=== PATIENT | male | born 1935 | race Caucasian/White ===

== ENCOUNTER 2018-12-06 09:09 | Inpatient (IN) ==
[2018-12-06] MEDS ORDERED: IPRATROPIUM/ALBUTEROL 3 ML AMPUL.NEB NEB ONE (09:40)
--- NOTE | 2018-12-06 09:46 | XRay Report ---
HISTORY: Short of breath FINDINGS: Patient has moderate emphysema involving the upper lobes. There is a chronic or recurrent moderate size consolidating infiltrate in the left lower lobe. This is worse than it was on 06/29/18 but similar to that seen on the chest CT done on 08/16/18. Some of the consolidation of lung parenchyma is probably scar tissue. There are are surgical sutures in the left mid and upper thorax. The prior CT scan also demonstrates significant consolidation posteriorly in the left upper lobe. The left upper lobe infiltrate has improved. The heart size is normal. There are sternal wires present. There is no congestive heart failure and no pleural effusion is seen. There is pleural scar tissue laterally at the left lung base. IMPRESSION: Infiltrate throughout the lower two thirds the left lung which may be a combination of recurrent pneumonia and scar tissue Postoperative changes following sternotomy and left-sided thoracotomy Emphysema Interpreted and Authenticated by: Herminio Andujar 12/06/18
--- NOTE | 2018-12-06 09:54 | Emergency Department Note ---
SOB HPI - General Chief Complaint: Shortness of Breath/Dyspnea Stated Complaint: SOB x2 weeks Time Seen by Provider: 12/06/18 09:35 Source: patient Mode of arrival: ambulatory Limitations: no limitations - History of Present Illness 83-year-old gentleman with significant history of coronary artery disease, former smoker, history of cough really for the last 3-4 months. Notably he had an abnormal chest x-ray in June of last year, left lower lobe infiltrate which really has not cleared in the interim. Positive CT in August for left upper lobe as well as left lower lobe pneumonia. Status post CABG. Quit smoking about that time. Reports that for the last 2 weeks has not felt well, coughing, sputum production worsening and he is bringing up yellow phlegm. Denies chest pain, he felt a little bit more short of breath today, also generalized weakness which has been worsening. Denies abdominal pain denies nausea vomiting diarrhea. 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 Constitutional: Reports: chills Eyes: Denies: eye pain ENT ED: Denies: ear pain Cardiovascular: Reports: dyspnea on exertion. Denies: chest pain, syncope Respiratory: Reports: shortness of breath, cough, wheezes, phlegm Gastrointestinal: Denies: abdominal pain, nausea, vomiting, diarrhea, constipation Genitourinary: Denies: dysuria, frequency Musculoskeletal: Denies: back pain Integumentary: Denies: rash Neurological: Reports: weakness. Denies: headache Endocrine: Reports: fatigue Hematological/Lymphatic: Denies: easy bleeding Allergic/Immunologic: Denies: facial swelling Past Medical History - Past Medical History Source: old records reviewed Medical history: Reports: CAD (coronary artery disease), COPD, DM, myocardial infarction, pneumonia, other (AAA, lung nodule) Surgical history ED: Reports: coronary bypass (CABG) (Two-vessel), knee replacement, other (Lung biopsy, aneurysm repair) Family history: Reports: non-contributory - Social History smoking status: Former smoker Alcohol use: Reports: Rarely Drug use: Reports: none Physical Exam Limitations: no limitations General appearance: alert, in no apparent distress Head: atraumatic, normocephalic, normal inspection Eye: Present: normal appearance, PERRL, EOMI. Absent: conjunctival injection ENT: normal exam, normal oropharynx, mucous membranes moist, TM's normal maddison aterally Neck: Present: normal inspection, full ROM, trachea midline Chest: Present: normal inspection, symmetric chest wall rise Respiratory: Present: wheezes, prolonged expiratory phase, other (diminished over the left lower lung bases.). Absent: respiratory distress, rales/crackles Cardiovascular: Present: regular rate, normal heart sounds Abdominal: Present: soft, normal bowel sounds. Absent: distention, tenderness, guarding Extremities: Present: normal inspection, full ROM. Absent: tenderness, pedal edema Back: Present: normal inspection. Absent: CVA tenderness (R), CVA tenderness (L) Neurological: Present: alert, oriented X3, normal gait, other (generally weak but still ambulatory.) Psychiatric: Present: normal affect Skin: Present: warm, normal color. Absent: rash, cyanosis Course Vital Signs Temperature 97.8 F 12/06/18 09:10 Pulse Rate 90 12/06/18 09:10 Respiratory Rate 18 12/06/18 09:10 Blood Pressure 123/72 12/06/18 09:10 Pulse Oximetry (%) 93 12/06/18 09:10 Temperature 100.3 F H 12/06/18 11:20 Pulse Rate 88 12/06/18 11:16 Respiratory Rate 15 12/06/18 11:16 Blood Pressure 112/77 12/06/18 11:16 Pulse Oximetry (%) 93 12/06/18 11:16 Shortness of Breath/Dyspnea - [facility] Narrative Medical decision making narrative: It turns out he is hypoxic on room air. O2 sats in the high 80s. Please see blood gas this was reviewed. Impression pneumonia left lower lobe. Started on antibiotics. Blood cultures drawn. Discussed with Dr. Butcher - Lab Data Result diagrams: 12/06/18 10:01 12/06/18 10:01 Lab Results 12/06/18 12/06/18 12/06/18 Range/Units 10:01 10:01 10:01 WBC 22.1 H (4.5-11.0) K/mcL RBC 4.10 L (4.50-5.90) M/mcL Hgb 12.8 L (13.5-16.5) g/dL Hct 38.7 L (41.0-55.0) % MCV 94.5 (80.0-100.0) fL MCH 31.3 (26.0-34.0) pg MCHC 33.1 (31.0-36.0) g/dL RDW 14.0 (11.5-14.5) % Plt Count 263 (140-440) K/mcL MPV 8.9 (7.4-10.4) fL Gran % 92.3 H (38.0-78.0) % Lymph % (Auto) 3.9 L (15.5-49.0) % [place] % (Auto) 3.8 (1.0-12.0) % Eos % (Auto) 0 (0.0-7.0) % Baso % (Auto) 0 (0.0-2.0) % Gran # 20.4 H (1.8-8.0) K/mcL Lymph # (Auto) 0.9 L (1.5-4.8) K/mcL [place] # (Auto) 0.8 (0.1-0.9) K/mcL Eos # (Auto) 0 (0.0-0.7) K/mcL Baso # (Auto) 0 (0.0-0.3) K/mcL VBG Lactic Acid 1.2 (0.5-2.0) mmol/L Sodium 134 (133-145) mmol/L Potassium 5.0 (3.3-5.1) mmol/L Chloride 98 (96-108) mmol/L Carbon Dioxide 25 (22-30) mmol/L Anion Gap 11.0 (8-16) BUN 13 (8-23) mg/dl Creatinine 0.9 (0.7-1.2) mg/dl GFR Calculation 80 Glucose 127 H (70-105) mg/dL Calcium 8.7 (8.6-10.4) mg/dl Total Bilirubin 0.6 (0.0-1.0) mg/dL AST 11 (0-37) U/l ALT 12 (0-40) U/l Alkaline Phosphatase 78 (39-117) U/L Troponin T (0-0.03) ng/ml C-Reactive Protein 24.2 H (0.0-0.8) mg/dl NT-Pro-B Natriuret Pep 1660.0 H (0-450) pg/ml Total Protein 6.4 (5.9-8.4) gm/dL Albumin 3.4 (3.2-5.2) gm/dL Globulin 3.0 (2.2-3.7) gm/dL Albumin/Globulin Ratio 1.1 (1.0-2.3) 12/06/18 Range/Units 10:01 WBC (4.5-11.0) K/mcL RBC (4.50-5.90) M/mcL Hgb (13.5-16.5) g/dL Hct (41.0-55.0) % MCV (80.0-100.0) fL MCH (26.0-34.0) pg MCHC (31.0-36.0) g/dL RDW (11.5-14.5) % Plt Count (140-440) K/mcL MPV (7.4-10.4) fL Gran % (38.0-78.0) % Lymph % (Auto) (15.5-49.0) % [place] % (Auto) (1.0-12.0) % Eos % (Auto) (0.0-7.0) % Baso % (Auto) (0.0-2.0) % Gran # (1.8-8.0) K/mcL Lymph # (Auto) (1.5-4.8) K/mcL [place] # (Auto) (0.1-0.9) K/mcL Eos # (Auto) (0.0-0.7) K/mcL Baso # (Auto) (0.0-0.3) K/mcL VBG Lactic Acid (0.5-2.0) mmol/L Sodium (133-145) mmol/L Potassium (3.3-5.1) mmol/L Chloride (96-108) mmol/L Carbon Dioxide (22-30) mmol/L Anion Gap (8-16) BUN (8-23) mg/dl Creatinine (0.7-1.2) mg/dl GFR Calculation Glucose (70-105) mg/dL Calcium (8.6-10.4) mg/dl Total Bilirubin (0.0-1.0) mg/dL AST (0-37) U/l ALT (0-40) U/l Alkaline Phosphatase (39-117) U/L Troponin T < 0.01 (0-0.03) ng/ml C-Reactive Protein (0.0-0.8) mg/dl NT-Pro-B Natriuret Pep (0-450) pg/ml Total Protein (5.9-8.4) gm/dL Albumin (3.2-5.2) gm/dL Globulin (2.2-3.7) gm/dL Albumin/Globulin Ratio (1.0-2.3) Disposition Pt seen by L[employer] RO[employer] MANAGER/PA only: No Clinical Impression: Community acquired pneumonia COPD (chronic obstructive pulmonary disease) Qualifiers: COPD type: emphysema Emphysema type: unspecified Qualified Code(s): J43.9 - Emphysema, unspecified Disposition: Xfer As Inpt ([facility]) Condition: Fair Referrals: Virginia Alvarado ARNP [Primary Care Provider] -
[2018-12-06] MEDS ORDERED: LACTATED RINGERS 1,000 ML IV SCH (10:00)
[2018-12-06 10:33] LABS: Basophils # (Auto) 0 K/mcL (0.0-0.3); Basophils % (Auto) 0 % (0.0-2.0); Eosinophils # (Auto) 0 K/mcL (0.0-0.7); Eosinophils % (Auto) 0 % (0.0-7.0); Granulocytes % (Auto) 92.3 % (38.0-78.0); Lymphocytes # (Auto) 0.9 K/mcL (1.5-4.8); Lymphocytes % (Auto) 3.9 % (15.5-49.0); Mean Cell Volume 94.5 fL (80.0-100.0); Mean Corpuscular HGB Conc 33.1 g/dL (31.0-36.0); Monocytes # (Auto) 0.8 K/mcL (0.1-0.9); Monocytes % (Auto) 3.8 % (1.0-12.0); Platelet Count 263 K/mcL (140-440)
[2018-12-06] MEDS ORDERED: cefTRIAXone 1 GM VIAL IV ONE ×2 (11:02→12:45)
[2018-12-06] MEDS ORDERED: LEVOFLOXACIN 750 MG/150 ML BAG IV ONE (11:03)
[2018-12-06 11:05] LABS: ALT/SGPT 12 U/l (0-40); Albumin 3.4 gm/dL (3.2-5.2); Albumin/Globulin Ratio 1.1 (1.0-2.3); Alkaline Phosphatase 78 U/L (39-117); Blood Urea Nitrogen 13 mg/dl (8-23); C-Reactive Protein 24.2 mg/dl (0.0-0.8)
[2018-12-06] MEDS ORDERED: ACETAMINOPHEN 325 MG TABLET PO ONE (11:17)
--- NOTE | 2018-12-06 11:27 | Internal Med History&Physical ---
Medical - H&P: [facility] Patient information: Note initiated : 12/06/18 at 11:25 am Service Date, if different from initiated Date: [] Patient: Anderson Zarate a 83 y/o M admitted on for SOB x2 weeks. Chief Complaint: [] Chief complaint: shortness of breath History of present illness: Mr. Zarate is a 83 year old M fairly independent who presents with worsening shortness of breath along with yellow productive sputum and fever that has evolved over the last week. Patient noted a significant functional decline to the point is extremely fatigued and unable to perform activities of daily living . He is also experiencing orthopnea. He denies shaking chills, rash, joint pain, headache, photophobia. He denies sick contacts. He is up-to-date on vaccines status. He sees primary care physician Virginia Cabrera. With worsening symptoms patient patient presents to the ER today. Initial workup was consistent with severe sepsis with white count 22,000 along with left lower lobe pneumonia. Patient was started on antibiotic coverage/hospitalist service was consulted At the time of evaluation patient is alert and oriented. He is feeling short of breath however it was able to talk in full sentences. He denies changes in medication. Review of systems 10 point review systems was performed and is negative except as discussed above Medical - H&P: PMH Medical history: Constipation Pertinent family history: Unremarkable Social history: Lives in [place] Does not smoke Medical - H&P: Meds Home Medications Medication Instructions Recorded Confirmed Type Aspirin [Lite Coat Aspirin] 325 mg PO DAILY 12/06/18 12/06/18 History Allergies Allergy/AdvReac Type Severity Reaction Status Date / Time No Known Drug Allergies Allergy Verified 08/16/18 09:13 Medical - H&P: Exam - Constitutional Vitals: Temp Pulse Resp BP Pulse Ox 100.3 F H 88 15 112/77 93 12/06/18 11:17 12/06/18 11:16 12/06/18 11:16 12/06/18 11:16 12/06/18 11:16 General appearance: no acute distress Exam: Alert oriented Minimally labored breathing eye movements symmetrical Oral cavity dry No ear or nose discharge Head normocephalic S1 and S2 regular rhythm tachycardia, PSM grade 1 Diminished breath sounds bases with markedly diminished sounds left lateral posterior chest Abdomen soft nontender Lower extremity no cyanosis clubbing or joint swelling Skin no suspicious lesion Psych alert cooperative Neuro nonfocal Medical - H&P: Reslt - Labs CBC & Chem 7: 12/06/18 10:01 12/06/18 10:01 Labs: Short CBC 12/06/18 Range/Units 10:01 WBC 22.1 H (4.5-11.0) K/mcL Hgb 12.8 L (13.5-16.5) g/dL Hct 38.7 L (41.0-55.0) % Plt Count 263 (140-440) K/mcL BMP 12/06/18 10:01 Sodium 134 Potassium 5.0 Chloride 98 Carbon Dioxide 25 BUN 13 Creatinine 0.9 Glucose 127 H Calcium 8.7 Cardiac Enzymes 12/06/18 Range/Units 10:01 Troponin T < 0.01 (0-0.03) ng/ml Liver Function 12/06/18 Range/Units 10:01 Total Bilirubin 0.6 (0.0-1.0) mg/dL AST 11 (0-37) U/l ALT 12 (0-40) U/l Alkaline Phosphatase 78 (39-117) U/L Albumin 3.4 (3.2-5.2) gm/dL Medical - H&P: A/P (1) Severe sepsis Current visit: Yes Status: Acute * Severe sepsis secondary pneumonia with white count 22,000-continue management per guidelines. Pancultures. Broad antibiotic coverage. Crystalloids/venous lactate trending * Left lower lobe pneumonia-continue antibiotic coverage for community acquired pathogen. Await sputum and blood cultures/mycoplasma Streptococcus serology. * Hypoxic respiratory failure secondary to above. Continue supplemental oxygen/pulmonary toilet/bronchodilators. * Prophylaxis heparin Plan * Inpatient admission * Broad antibiotic coverage * Bronchodilators/pulmonary toilet/supplemental oxygen * Nutrition support/PT OT * Case management to coordinate discharge planning
[2018-12-06] MEDS ORDERED: ACETAMINOPHEN 1,000 MG/100 ML BOTTLE IV PRN (12:29)
[2018-12-06] MEDS ORDERED: MAGNESIUM SULFATE 2 GM/50 ML BAG IV PRN (12:29)
[2018-12-06] MEDS ORDERED: POTASSIUM CHLORIDE 20 MEQ PACKET PO PRN (12:29)
[2018-12-06] MEDS ORDERED: ONDANSETRON 4 MG/2 ML VIAL IV PRN (12:29)
[2018-12-06] MEDS ORDERED: NOREPINEPHRINE BITARTRATE 16 MG in 0.9 % SODIUM CHLORIDE 234 ML IV PRN (12:29)
[2018-12-06] MEDS ORDERED: ACETAMINOPHEN 325 MG TABLET PO PRN (12:29)
[2018-12-06] MEDS ORDERED: LEVOFLOXACIN 750 MG/150 ML BAG IV SCH (12:29)
[2018-12-06] MEDS ORDERED: traZODone HCL 50 MG TABLET PO PRN (12:29)
[2018-12-06] MEDS: 0.9 % SODIUM CHLORIDE 1,000 ML IV SCH (12:52)
[2018-12-06] MEDS: 0.9 % SODIUM CHLORIDE 10 ML SYRINGE IV SCH ×2 (13:34→21:00)
[2018-12-06] MEDS: IPRATROPIUM/ALBUTEROL 3 ML AMPUL.NEB NEB SCH ×3 (14:41→22:44)
[2018-12-06] MEDS ORDERED: MAGNESIUM HYDROXIDE 30 ML ORAL.SUSP PO PRN (15:38)
[2018-12-06] MEDS: guaiFENesin/DEXTROMETHORPHAN ORAL SOL PO PRN (16:05)
[2018-12-06] MEDS: BUDESONIDE 0.5 MG/2 ML AMPUL.NEB NEB SCH (19:20)
[2018-12-06] MEDS: HEPARIN 5,000 UNIT/ML VIAL SQ SCH (20:58)
[2018-12-06] MEDS: DOCUSATE SODIUM 100 MG CAPSULE PO SCH (20:58)
[2018-12-06] MEDS ORDERED: SENNOSIDES/DOCUSATE SODIUM 1 TAB TABLET PO SCH (21:00)
[2018-12-07] MEDS: guaiFENesin/DEXTROMETHORPHAN ORAL SOL PO PRN (00:48)
[2018-12-07] MEDS: IPRATROPIUM/ALBUTEROL 3 ML AMPUL.NEB NEB SCH ×5 (03:03→22:29)
[2018-12-07] MEDS: 0.9 % SODIUM CHLORIDE 10 ML SYRINGE IV SCH ×3 (05:23→21:47)
[2018-12-07 05:40] LABS: Mean Cell Volume 94.9 fL (80.0-100.0); Mean Corpuscular HGB Conc 32.7 g/dL (31.0-36.0); Platelet Count 202 K/mcL (140-440); RBC 3.63 M/mcL (4.50-5.90); Red Cell Distribution Width 14.1 % (11.5-14.5)
[2018-12-07 06:07] LABS: ALT/SGPT 13 U/l (0-40); Albumin 2.8 gm/dL (3.2-5.2); Alkaline Phosphatase 86 U/L (39-117); Bilirubin,Direct < 0.2 mg/dL (0.0-0.3); Blood Urea Nitrogen 10 mg/dl (8-23); Gamma Glutamyl Transpeptidase 31 U/L (8-61); Uric Acid 4.5 mg/dL (2.5-8.0)
[2018-12-07 06:35] LABS: Lymphocytes % 12 % (15-49); Monocytes % (Manual) 3 % (1-12); Platelet Estimate NORMAL (NORMAL); RBC Morphology NORMAL (NORMAL); Segmented Neutrophils % 85 % (38-78)
[2018-12-07] MEDS: BUDESONIDE 0.5 MG/2 ML AMPUL.NEB NEB SCH ×2 (07:57→19:17)
[2018-12-07] MEDS: HEPARIN 5,000 UNIT/ML VIAL SQ SCH ×2 (08:17→21:47)
[2018-12-07] MEDS: DOCUSATE SODIUM 100 MG CAPSULE PO SCH ×2 (08:18→21:47)
[2018-12-07] MEDS: 0.9 % SODIUM CHLORIDE 1,000 ML IV SCH ×2 (08:29→16:13)
[2018-12-07] MEDS ORDERED: ASPIRIN 325 MG ENTERIC COATED TABLET PO SCH (09:00)
[2018-12-07] MEDS ORDERED: cefTRIAXone 2 GM in DEXTROSE 5% IN WATER 50 ML IV SCH (09:00)
--- NOTE | 2018-12-07 09:55 | Internal Med Progress Note ---
Medical - PN: Subj Patient information: Note initiated : 12/07/18 at 9:51 am Service Date, if different from initiated Date: [] Patient: Anderson Zarate a 83 y/o M admitted on 12/06/18 for SOB x2 weeks. Chief Complaint: [] Interval history: Mr. Zarate is a 83 year old M fairly independent gentleman who presents with worsening shortness of breath along with yellow productive sputum and fever that has evolved over the last week. Patient noted a significant functional decline to the point is extremely fatigued and unable to perform ADL. He is also experiencing orthopnea. He denies shaking chills, rash, joint pain, headache, photophobia. He denies sick contacts. He is up-to-date on vaccines status. He sees primary care physician Virginia Cabrera. With worsening symptoms patient patient presents to the ER today. Initial workup was consistent with severe sepsis with white count 22,000 along with left lower lobe pneumonia. Patient was started on antibiotic coverage/hospitalist service was consulted At the time of evaluation patient is alert and oriented. He is feeling short of breath however it was able to talk in full sentences. He denies changes in medication. 12/07-patient has shown dramatic improvement overnight on antibiotic coverage. White count is down to 10,000. Dyspnea has improved. Denies fevers shaking chills. Improving productive sputum. Initial Gram stain mixed abhijit. Juanito erating diet. Family at bedside. No concerns expressed by patient or nursing staff. Continue treatment - Constitutional Vitals: Vital Signs Temp Pulse Resp BP Pulse Ox 97.4 F 83 16 126/79 92 12/07/18 06:41 12/07/18 07:59 12/07/18 07:59 12/07/18 06:41 12/07/18 07:59 Period Temp Pulse Resp BP Sys/Platt Pulse Ox Last 24 Hr 97.4 F-101.8 F 74-94 15-32 96-149/66-81 86-100 Intake and Output 12/06/18 12/07/18 12/07/18 21:59 05:59 13:59 Intake Total 8766 713 1280 Output Total 650 850 Balance 647 -700 1221 Weight 206 lb Intake & Output: Intake & Output 12/06/18 12/07/18 12/07/18 21:59 05:59 13:59 Intake Total 6169 096 9401 Output Total 650 850 Balance 647 -700 1221 Weight 206 lb Intake: IV 787 981 Sodium Chloride 0.9% 1,000 ml @ 981 50 mls/hr IV .Q20H [facility] Rx#: [id number] Oral 510 150 240 Output: Void Amount 650 850 Other: Meal Lunch Percent of Meal Consumed 100% Urine Appearance Clear Clear Urine Color Light Andree Dark Yellow Urine Odor Normal Normal Stool Size Small Stool Color Brown Stool Consistency Normal for Patient # Voids 1 # Bowel Movements 1 General appearance: no acute distress Exam: Alert oriented Nonlabored breathing No anxiety Nondistended abdomen Medical - PN: Obj Da - Labs CBC & Chem 7: 12/07/18 03:32 12/07/18 03:32 Labs: Abnormal Lab Results 12/07/18 12/07/18 12/06/18 03:32 03:32 10:01 WBC RBC 3.63 L Hgb 11.3 L Hct 34.5 L Gran % Lymph % (Auto) Gran # Lymph # (Auto) Seg Neutrophils % 85 H Lymphocytes % 12 L Glucose 145 H 127 H Calcium 8.0 L C-Reactive Protein 24.2 H NT-Pro-B Natriuret Pep 1660.0 H Total Protein 5.5 L Albumin 2.8 L 12/06/18 10:01 WBC 22.1 H RBC 4.10 L Hgb 12.8 L Hct 38.7 L Gran % 92.3 H Lymph % (Auto) 3.9 L Gran # 20.4 H Lymph # (Auto) 0.9 L Seg Neutrophils % Lymphocytes % Glucose Calcium C-Reactive Protein NT-Pro-B Natriuret Pep Total Protein Albumin Meds: Medications Acetaminophen (Tylenol) 650 mg PO Q4-6HP PRN PRN Reason: PAIN/FEVER > 101 Last Admin: 12/06/18 20:58 Dose: 650 mg Documented by: Albuterol/Ipratropium (Duoneb) 3 ml NEB Q4HRT [facility] Last Admin: 12/07/18 07:57 Dose: 3 ml Documented by: Aspirin (Ecotrin) 325 mg PO DAILY [facility] Last Admin: 12/07/18 08:17 Dose: 325 mg Documented by: Budesonide (Pulmicort) 0.5 mg NEB Q12 [facility] Last Admin: 12/07/18 07:57 Dose: 0.5 mg Documented by: Docusate Sodium (Colace) 100 mg PO BID [facility] Last Admin: 12/07/18 08:18 Dose: 100 mg Documented by: Guaifenesin (Robitussin Dm) 10 ml PO Q4HP PRN PRN Reason: Cough Last Admin: 12/07/18 00:48 Dose: 10 ml Documented by: Heparin Sodium (Porcine) (Heparin) 5,000 unit SQ Q12 [facility] Last Admin: 12/07/18 08:17 Dose: 5,000 unit Documented by: Ceftriaxone Sodium 2 gm/ (Dextrose) 50 mls @ 100 mls/hr IV Q24H [facility]; Protocol Last Admin: 12/07/18 08:15 Dose: 100 mls/hr Documented by: Magnesium Sulfate (Magnesium Sulfate) 2 gm in 50 mls @ 50 mls/hr IV UD PRN PRN Reason: MG = or < 1.7 Norepinephrine Bitartrate 16 (mg/ Sodium Chloride) 250 mls @ 9.38 mls/hr IV Q24HP PRN; Protocol PRN Reason: Hypotension Sodium Chloride (Sodium Chloride 0.9%) 1,000 mls @ 50 mls/hr IV .Q20H [facility] Stop: 12/09/18 00:28 Last Admin: 12/07/18 08:29 Dose: 50 mls/hr Documented by: Acetaminophen (Ofirmev) 1,000 mg in 100 mls @ 200 mls/hr IV Q6HP PRN PRN Reason: PAIN/FEVER > 101 Levofloxacin (Levaquin) 750 mg in 150 mls @ 100 mls/hr IV Q24H [facility]; Protocol Last Admin: 12/07/18 08:28 Dose: 100 mls/hr Documented by: Magnesium Hydroxide (Milk Of Magnesia) 30 ml PO DAILYP PRN PRN Reason: Constipation Ondansetron HCl (Zofran) 4 mg IV Q4-6HP PRN PRN Reason: Nausea And Vomiting Potassium Chloride (Klor-Con) 40 meq PO DAILYP PRN PRN Reason: K+ < 3.5 Senna/Docusate Sodium (Senna Plus Tablet) 1 tab PO HS [facility] Last Admin: 12/06/18 20:58 Dose: 1 tab Documented by: Sodium Chloride (Saline Flush) 10 ml IV Q8 [facility] Last Admin: 12/07/18 05:23 Dose: Not Given Documented by: Trazodone HCl (Desyrel) 50 mg PO HSP PRN PRN Reason: Insomnia Last Admin: 12/06/18 20:58 Dose: 50 mg Documented by: Medical - PN: A/P - Time Spent With Patient Total time spent is greater than 50% in coordination of care (as documented) at patient's floor/unit and/or counseling patient: 25 - 35 minutes (1) Severe sepsis Status: Acute Assessment and plan: * Left lower lobe pneumonia-remarkable clinical improvement noted since admission. Downtrending white count from 20,000-10,000. Floor on sputum. Negative blood cultures/mycoplasma Streptococcus serology. * Severe sepsis secondary pneumonia with white count improved to 10,000. Continue Management per guidelines. * Hypoxic respiratory failure secondary to above. Clinically improving. On 2 L oxygen , continue pulmonary toilet/bronchodilators. * Prophylaxis heparin Plan * Continue antibiotic coverage * Pulmonary toilet/bronchodilators and supplemental oxygen * PT OT/dietary intervention * Possible discharge in 24-48 hours Current Visit: Yes Medical - PN: Qual - VTE Deep Vein Thrombosis/Pulmonary Embolism Present on Admission: No
[2018-12-07] MEDS ORDERED: LEVOFLOXACIN 750 MG/150 ML BAG IV SCH (10:00)
[2018-12-07] MEDS ORDERED: ACETAMINOPHEN 325 MG TABLET PO PRN (15:10)
[2018-12-07] MEDS ORDERED: MAGNESIUM SULFATE 2 GM/50 ML BAG IV PRN (15:10)
[2018-12-07] MEDS ORDERED: guaiFENesin/DEXTROMETHORPHAN ORAL SOL PO PRN (15:10)
[2018-12-07] MEDS ORDERED: NOREPINEPHRINE BITARTRATE 16 MG in 0.9 % SODIUM CHLORIDE 234 ML IV PRN (15:10)
[2018-12-07] MEDS ORDERED: traZODone HCL 50 MG TABLET PO PRN (15:10)
[2018-12-07] MEDS ORDERED: MAGNESIUM HYDROXIDE 30 ML ORAL.SUSP PO PRN (15:10)
[2018-12-07] MEDS ORDERED: ACETAMINOPHEN 1,000 MG/100 ML BOTTLE IV PRN (15:10)
[2018-12-07] MEDS ORDERED: POTASSIUM CHLORIDE 20 MEQ PACKET PO PRN (15:10)
[2018-12-07] MEDS ORDERED: ONDANSETRON 4 MG/2 ML VIAL IV PRN (15:10)
[2018-12-07] MEDS ORDERED: SENNOSIDES/DOCUSATE SODIUM 1 TAB TABLET PO SCH (21:00)
[2018-12-08] MEDS: IPRATROPIUM/ALBUTEROL 3 ML AMPUL.NEB NEB SCH ×2 (02:55→07:43)
[2018-12-08] MEDS: 0.9 % SODIUM CHLORIDE 10 ML SYRINGE IV SCH (06:06)
[2018-12-08] MEDS: 0.9 % SODIUM CHLORIDE 1,000 ML IV SCH (06:13)
[2018-12-08 06:18] LABS: Mean Cell Volume 93.9 fL (80.0-100.0); Mean Corpuscular HGB Conc 33.2 g/dL (31.0-36.0); Platelet Count 218 K/mcL (140-440); RBC 3.53 M/mcL (4.50-5.90); Red Cell Distribution Width 13.6 % (11.5-14.5)
[2018-12-08 06:32] LABS: ALT/SGPT 41 U/l (0-40); Albumin 2.5 gm/dL (3.2-5.2); Alkaline Phosphatase 68 U/L (39-117); Bilirubin,Direct < 0.2 mg/dL (0.0-0.3); Blood Urea Nitrogen 7 mg/dl (8-23); Gamma Glutamyl Transpeptidase 33 U/L (8-61)
[2018-12-08] MEDS: BUDESONIDE 0.5 MG/2 ML AMPUL.NEB NEB SCH (07:43)
[2018-12-08 07:51] LABS: Band Neutrophils % 1 % (0-10); Eosinophils % (Manual) 3 % (0-7); Lymphocytes % 15 % (15-49); Monocytes % (Manual) 5 % (1-12); Platelet Estimate NORMAL (NORMAL); RBC Morphology NORMAL (NORMAL); Segmented Neutrophils % 76 % (38-78)
[2018-12-08] MEDS: DOCUSATE SODIUM 100 MG CAPSULE PO SCH (08:50)
[2018-12-08] MEDS: HEPARIN 5,000 UNIT/ML VIAL SQ SCH (08:51)
[2018-12-08] MEDS ORDERED: cefTRIAXone 2 GM in DEXTROSE 5% IN WATER 50 ML IV SCH (09:00)
[2018-12-08] MEDS ORDERED: ASPIRIN 325 MG ENTERIC COATED TABLET PO SCH (09:00)
--- NOTE | 2018-12-08 09:08 | XRay Report ---
HISTORY: Follow-up pneumonia FINDINGS: There is a diffuse infiltrates throughout the left lung with the greatest consolidation left lower lobe. This has become worse since 12/06/18. Increased interstitial lung markings are also seen around the right hilum, which are also more prominent. The heart is mild to moderately enlarged. The heart has increased in size. No pleural effusion is detected. IMPRESSION: Worsening infiltrates, especially on the left side. This could be a combination of pneumonia, underlying scar and congestive heart failure. Interpreted and Authenticated by: Herminio Andujar 12/08/18
[2018-12-08] MEDS ORDERED: LEVOFLOXACIN 750 MG/150 ML BAG IV SCH (10:00)
--- NOTE | 2018-12-08 10:39 | Discharge Summary ---
Medical - DS: Prov Patient information: Note initiated : 12/08/18 at 10:36 am Service Date, if different from initiated Date: [] Patient: Anderson Zarate 83 y/o M admitted on 12/06/18 for SOB x2 weeks. Chief Complaint: [] Date of admission: 12/06/18 12:13 Discharge date: 12/08/18 Primary care physician: Virginia Alvarado Consults: 12/06/18 Consult to Physician [CONS] Stat Comment: Consulting Provider: Sergio Stewart Reason For Exam: Physician to Consult Medical - DS: Meds - Discharge Medications Prescriptions: Levofloxacin [Levaquin] 750 mg PO DAILY #5 tab Active and Home Medications: Home Medications Aspirin [Lite Coat Aspirin] 325 mg PO DAILY 12/06/18 [History Confirmed 12/06/18 Last Taken Unknown] Levofloxacin [Levaquin] 750 mg PO DAILY #5 tab 12/08/18 [Rx Last Taken Unknown] Medical - DS: Hosp Hospital course: Discharge diagnoses * Left lower lobe pneumonia-Managed aggressively and antibiotics/Pulmicort toilet and bronchodilators. remarkable clinical improvement noted since admission. White count down trended from 20,000-7.3. Negative cultures so far. Discharge home on additional 5 days oral Levaquin. * Severe sepsis secondary pneumonia -resolved with management per guidelines * Hypoxic respiratory failure secondary to above. Clinically resolved. Now on room air Brief hospital course Mr. Zarate is a 83 year old M fairly independent gentleman who presents with worsening shortness of breath along with yellow productive sputum and fever that has evolved over the last week. Patient noted a significant functional decline to the point is extremely fatigued and unable to perform ADL. He is also experiencing orthopnea. He denies shaking chills, rash, joint pain, headache, photophobia. He denies sick contacts. He is up-to-date on vaccines status. He sees primary care physician Virginia Cabrera. With worsening symptoms patient patient presents to the ER today. Initial workup was consistent with severe sepsis with white count 22,000 along with left lower lobe pneumonia. Patient was started on antibiotic coverage/hospitalist service was consulted At the time of evaluation patient is alert and oriented. He is feeling short of breath however it was able to talk in full sentences. He denies changes in medication. 12/07-patient has shown dramatic improvement overnight on antibiotic coverage. White count is down to 10,000. Dyspnea has improved. Denies fevers shaking chills. Improving productive sputum. Initial Gram stain mixed abhijit. Tolerating diet. Family at bedside. No concerns expressed by patient or nursing staff. Continue treatment 12/08-patient doing well. No overnight events. Currently off oxygen. Shortness of breath much improved. Continue additional 5 days oral antibiotics. Discharge home in stable state with advice to follow primary care physician 5-7 days. Discharge diagnosis: . - Time Spent with Patient Total time spent providing and/or coordinating discharge services: Greater than 30 minutes Medical - DS: Exam - Constitutional Vitals: Vital Signs Temp Pulse Pulse Resp BP BP Pulse Ox 12/08/18 07:44 76 16 95 12/08/18 07:10 97.9 F 75 16 132/79 95 12/08/18 03:45 98.5 F 83 22 157/85 94 12/07/18 22:44 98.8 F 83 22 135/77 91 12/07/18 22:29 77 16 12/07/18 20:00 95 12/07/18 18:45 75 18 94 12/07/18 18:41 80 18 12/07/18 18:34 98.3 F 84 24 H 127/80 95 12/07/18 16:36 97.3 F 78 14 135/80 94 12/07/18 11:44 98.3 F 18 134/71 97 12/07/18 11:28 84 16 Intake and Output 12/07/18 12/08/18 12/08/18 21:59 05:59 13:59 Intake Total 600 800 50 Output Total 250 Balance 600 550 50 Intake: Nourishment/Supplement quantity 240 (ml) IV 50 Rocephin 2 gm In Dextrose 5% in 50 Water 50 ml @ 100 mls/hr IV Q24H [facility] Rx#:[id number] Oral 360 800 Output: Void Amount 250 Other: Meal Dinner Percent of Meal Consumed 100% Feeding Ability Independent Nourishment/Supplement name Glucerna Urine Appearance Clear Urine Color Dark Yellow # Voids 1 Weight 209 lb Medical - DS: Data Labs on day of discharge: Labs from last 24 hours 12/08/18 12/08/18 04:03 04:03 WBC 7.3 RBC 3.53 L Hgb 11.0 L Hct 33.1 L MCV 93.9 MCH 31.2 MCHC 33.2 RDW 13.6 Plt Count 218 MPV 9.0 Total Counted 100 Seg Neutrophils % 76 Band Neutrophils % 1 Lymphocytes % 15 Monocytes % (Manual) 5 Eosinophils % (Manual) 3 Platelet Estimate Normal RBC Morphology Normal Sodium 137 Potassium 3.9 Chloride 103 Carbon Dioxide 22 Anion Gap 12.0 BUN 7 L Creatinine 0.6 L GFR Calculation 94 Glucose 143 H Uric Acid 4.0 Calcium 7.7 L Phosphorus 2.9 Magnesium 2.1 Total Bilirubin 0.2 Direct Bilirubin < 0.2 GGT 33 AST 39 H ALT 41 H Alkaline Phosphatase 68 Lactate Dehydrogenase 147 Total Protein 5.1 L Albumin 2.5 L Globulin 2.6 Albumin/Globulin Ratio 1.0 Triglycerides 67 Preliminary micro results at discharge 12/06/18 11:43 Blood Culture - Preliminary Blood 12/06/18 09:34 Sputum Culture - Preliminary Sputum - Induced Presumptive haemophilis sp 12/06/18 11:19 Blood Culture - Preliminary Blood Medical - DS: A/P - Patient/Caregiver Discharge Instructions Activity: increase activity as tolerated, resume usual activities as tolerated Diet: Regular Diet Additional Instructions: Continue oral Levaquin for additional 5 days, return to ER if worsening fever chills shortness of breath Refrain from smoking Follow-up PCP in 5-7 days Prescriptions: Levofloxacin [Levaquin] 750 mg PO DAILY #5 tab - Problem Maintenance (1) Severe sepsis Status: Acute - Follow up Plan Follow up with: Virginia Alvarado ARNP [Primary Care Provider] - Disposition: Home, Self-Care Prognosis: Fair Rehab Potential: Fair I certify that the patient requires SNF services: No Overall status at discharge: patient is back to baseline Medical - DS: Qual - VTE Deep Vein Thrombosis/Pulmonary Embolism Present on Admission: No
[2018-12-08] MEDS ORDERED: IPRATROPIUM/ALBUTEROL 3 ML AMPUL.NEB NEB SCH (13:00)
== END 2018-12-08 11:49 | disposition home or self-care (01) | DRG 871 ==
LOC: ED 09:09 → ICU 12:13 → MEDSUR 12-07 14:59
PROVIDERS: ADMIT Internal Medicine; ATTEND Internal Medicine